=== PATIENT | male | born 1990 | race Caucasian/White ===

== ENCOUNTER 2016-12-29 07:43 | Emergency (ER) | payer OTHER ==
[~2016-12-29] VITALS: Ht 175.3 cm; Wt 100.0 kg
[~2016-12-29 07:43] MED LIST: ALBU18HF INHALATION; ALBU8.5H3 INH; ALBU8.5H3 PO; ALBU8.5H5 INH; ALBUTEROL; AZIT250T94 PO; CETI10CA PO; PRED20TA PO; PRED50TA PO; QVAR40 INH
[2016-12-29 07:46] VITALS: Ht 175.3 cm; Wt 100.0 kg
[2016-12-29] MEDS ORDERED: ALBUTEROL 0.5% (NEB) 2.5 MG/0.5 ML AMP HHN STA (08:16)
[2016-12-29] MEDS ORDERED: IPRATROPIUM (NEB) 0.5 MG/2.5 ML AMP HHN ONE (08:30)
--- NOTE | 2016-12-29 09:08 | RADRPT ---
PROCEDURE: XR Chest. CLINICAL INDICATION: Shortness of breath, cough TECHNIQUE: Single frontal view of the chest was obtained COMPARISON: 04/12/2014 FINDINGS: The heart and mediastinum are within normal limits. The lungs are clear. There is no pleural effusion or pneumothorax. RPTAT: AA IMPRESSION: No acute disease. .Roby Andrade MD, MD Date Time Electronically viewed and signed by .Roby Andrade MD, MD on 12/29/2016 09:08 .S/
[2016-12-29] MEDS ORDERED: MED4DP PO (09:28)
--- NOTE | 2016-12-29 09:37 | ERD ---
ER Documentation Chief Complaint Date/Time DATE: 12/29/16 TIME: 09:34 Chief Complaint cough,st HPI This is a 26-year-old male presents to the ER with a cough and sore throat that started yesterday. Patient has a past medical history of asthma and states that his asthma has been worse secondary to the cough. Patient has been taking his albuterol and his Qvar as prescribed however he still feels short of breath. Patient denies any chest pain. He denies any fevers or chills. He denies any recent travel. ROS 12 point review of systems was done, all negative except per HPI. Medications Home Meds Active Scripts Methylprednisolone* (Medrol* DOSE PACK) 4 Mg/Dose-Pack Tab.ds.pk, 4 MG PO . DIRECTED for 6 Days, PACKET Prov:LORE RED 12/29/16 Prednisone* (Prednisone*) 20 Mg Tab, 40 MG PO DAILY for 4 Days, TAB Prov:RITA TUCKER PA-C 09/09/16 Albuterol Sulfate* (Ventolin HFA*) 18 Gm Hfa.aer.ad, 2 PUFF INHALATION Q4H, #1 INHALER Prov:RITA TUCKER PA-C 09/09/16 Beclomethasone Dip (Qvar 40) 1 Puff Inha, 1 PUFF INH BID, #1 INHALER Prov:RITA TUCKER PA-C 09/09/16 Cetirizine Hcl* (Zyrtec*) 10 Mg Capsule, 10 MG PO DAILY, #14 TAB.CHEW Prov:RITA TUCKER PA-C 09/09/16 Azithromycin* (Zithromax*) 250 Mg Tablet, 250 MG PO .ZPACK DIRECTED, #6 TAB TAKE 500 MG (2 TABS) THE FIRST DAY THEN 250 MG (1 TAB) DAYS 2-5 Prov:RITA TUCKER PA-C 09/09/16 Prednisone* (Prednisone*) 20 Mg Tab, 40 MG PO DAILY for 4 Days, TAB Prov:VIVIANE DOCKERY PA-C 11/04/15 Albuterol Sulfate* (Proair HFA*) 8.5 Gm Hfa.aer.ad, 2 PUFF INH Q4, #1 INHALER Prov:VIVIANE DOCKERY M. PA-C 11/04/15 Prednisone* (Prednisone*) 50 Mg Tablet, 50 MG PO DAILY, #5 TAB Prov:MELIDA MILNER PA-C 09/30/15 Albuterol Sulfate* (Albuterol Sulfate* HFA) 8.5 Gm Hfa.aer.ad, 1-2 PUFF INH Q4 Y for SHORTNESS OF BREATH, #1 EA Prov:MELIDA MILNER PA-C 09/30/15 Prednisone* (Prednisone*) 20 Mg Tab, 40 MG PO DAILY for 4 Days, TAB Prov:ANDERSON LAWRENCE DO 05/23/15 Reported Medications Albuterol Sulfate* (Proair HFA*) 8.5 Gm Hfa.aer.ad, 2 PUFF PO BID 04/26/13 Albuterol 03/02/10 Allergies Allergies: Coded Allergies: aspirin (Verified Allergy, Mild, 01/27/15) PMhx/Soc History of Surgery: Yes (RIGHT FEMUR SX) Anesthesia Reaction: No Hx Neurological Disorder: No Hx Respiratory Disorders: Yes (ASTHMA) Hx Cardiac Disorders: No Hx Psychiatric Problems: No Hx Miscellaneous Medical Probl: No Hx Alcohol Use: Yes (OCCASIONALLY) Hx Substance Use: Yes (MARIJUANA OCCASIONALLY) Hx Tobacco Use: No Physical Exam Vitals Vital Signs Date Time Temp Pulse Resp B/P Pulse Ox O2 Delivery O2 Flow Rate FiO2 12/29/16 08:30 88 20 95 21 12/29/16 07:46 98.1 69 18 130/74 97 Physical Exam GENERAL: The patient is well-developed, well-nourished, in no acute distress. NECK: Cervical spine is non tender with no step off. Supple, no nuchal rigidity HEENT: Atraumatic. Pupils equal, round and reactive to light. Extraocular muscles are grossly intact. Conjunctivae pink, no discharge. Bilateral tympanic membranes are clear with no evidence of erythema, effusion or dulling of the light reflex. Tonsilar erythema with no exudates or uvular deviation. Clear rhinorrhea. RESPIRATORY: Clear to auscultation bilaterally. There are no rales, wheezes or rhonchi. HEART: Regular rate and rhythm. No murmurs, clicks, rubs or gallops. EXTREMITIES: No clubbing or cyanosis. Full range of motion. Grossly neurovascularly intact. NEUROLOGIC: Alert and oriented. Cranial nerves II through XII are intact. SKIN: There is no rash. The skin is warm and dry. Results 24 hrs Current Medications Medications (Trade) Dose Ordered Sig/Salome Route PRN Reason Start Time Stop Time Status Last Admin Dose Admin Albuterol (Proventil 0.5% (Neb)) 5 mg ONCE STAT HHN 12/29/16 08:16 12/29/16 08:19 DC 12/29/16 08:28 Ipratropium [place] (Atrovent 0.02% (Neb)) 0.5 mg ONCE ONCE HHN 12/29/16 08:30 12/29/16 08:31 DC 12/29/16 08:30 Procedures/MDM Differential diagnosis includes but is not limited to; Viral URI, allergic rhinitis, bronchitis, pertussis,pneumonia. This is likely viral in etiology. Clinical suspicion for pneumonia is low as patient appears well, is not hypoxic or in any respiratory distress. Additionally, patients physical examination is benign. Patient's asthma is likely exacerbated by this viral URI. He will be sent home with a medrol dose pack. Plan was discussed with patient they understand and agree. Patient needs to follow up with PCP in 1-2 days or return to ER sooner if symptoms worsen. Departure Diagnosis: Primary Impression: Upper respiratory infection Condition: Stable Patient Instructions: Preventing Common Respiratory Infections Additional Instructions: Call your primary care doctor TOMORROW for an appointment during the next 1-2 days.See the doctor sooner or return here if your condition worsens before your appointment time. LORE RED Dec 29, 2016 09:37
[2016-12-29 09:40] VITALS: PULSE 90
== END 2016-12-29 09:40 | disposition home or self-care (01) ==
LOC: FTE 07:43
DX: J06.9 Acute upper respiratory infection, unspecified (principal); J45.909 Unspecified asthma, uncomplicated
CPT/HCPCS: 71010; 94664; Z7502; Z7610